=== PATIENT | female | born 1945 | race Caucasian/White ===

== ENCOUNTER 2021-01-31 08:28 | Outpatient (CLI) | payer MEDICARE ==
[2021-01-31] VITALS (12 sets, daily range): BP systolic 89–198; BP diastolic 33–60
[~2021-01-31] VITALS: Ht 156.2 cm; Wt 47.7 kg
[~2021-01-31 08:28] MED LIST: AMLO10TA4 PO; ASPI-482 PO; ATOR10TA PO; BUTA1CAP29 PO; CHOL2000 PO; DIAZ5TAB PO; IODIXANOL 320 MG/ML 100 ML VIAL. ONE; LIDOCAINE 1% Multi-Dose 20 ML VIAL. ONE; TRIA1CAP PO
[2021-01-31] MEDS ORDERED: LISI20TA PO (08:57)
[2021-01-31] MEDS ORDERED: LISI-517 PO (08:57)
[2021-01-31] MEDS ORDERED: CRESTOR5 MG PO (08:59)
[2021-01-31] MEDS ORDERED: CODEINE PO (09:06)
[2021-01-31] MEDS ORDERED: FIORINAL PO (09:06)
[2021-01-31] MEDS ORDERED: lozol PO (09:06)
[2021-01-31 09:07] LABS: HEMATOCRIT 37.4 % (36.0-47.0); HEMOGLOBIN 12.5 g/dL (12.0-15.5); RED BLOOD COUNT 4.21 x10^6/uL (3.50-5.40); RED CELL DISTRIBUTION WIDTH 14.9 % (11.5-14.5); WHITE BLOOD COUNT 5.7 x10^3/uL (4.0-11.0)
[2021-01-31 09:15] LABS: CALCIUM 9.3 mg/dL (8.5-10.1); CREATININE 1.6 mg/dL (0.6-1.0); GFR 31.3; POTASSIUM 4.3 mmol/L (3.5-5.1)
[2021-01-31 09:16] LABS: PROTHROMBIN TIME PATIENT 11.9 SEC (11.7-14.0)
--- NOTE | 2021-01-31 09:29 | PDOC ---
MODERATE SEDATION ASSESSMENT RISKS/ALTERNATIVES Risks/Alternatives Risks and alternatives of this type of sedation and procedure discussed with: RISK/ALTERNATIVES: Patient H & P ON CHART H & P H & P on chart and reviewed for co-morbid conditions and appropriate labs. H&P ON CHART: Yes STATUS PREG STATUS ASSESSED: N/A MEDS/ALLERGIES REVIEWED Meds/Allergies Reviewed Medications and Allergies including time and route of recently administered narcotics and sedatives. MEDS/ALLERGIES REVIEWED: Yes ASA RATING ASA RATING: III AIRWAY ASSESSMENT Airway Assessment Airway patency, oral function limitations, presence of caps, crowns, dentures, partials, and ability to extend neck assessed. AIRWAY ASSESSMENT: Yes MALLAMPATI SCORE MALLAMPATI SCORE: II PRE-SEDATION ASSESSMENT PRE-SEDATION ASSESSMENT: Yes DYLON KIRKPATRICK MD Jan 31, 2021 09:29
[2021-01-31] MEDS ORDERED: MIDAZOLAM HCL/PF 2 MG/2 ML VIAL. ONE ×2 (09:35→10:15)
[2021-01-31] MEDS ORDERED: fentaNYL PF VIAL 100 MCG/2 ML VIAL ONE (09:35)
[2021-01-31] MEDS ORDERED: hydrALAZINE 20 MG/ML VIAL. ONE (10:18)
[2021-01-31] MEDS ORDERED: HEPARIN for IV BOLUS 10,000 UNIT/10 ML VIAL. ONE (10:24)
[2021-01-31] MEDS ORDERED: HEPARIN for IV BOLUS 10,000 UNIT/10 ML VIAL. IV ONE (10:45)
[2021-01-31] MEDS ORDERED: hydrALAZINE 20 MG/ML VIAL. IVP ONE (10:45)
[2021-01-31] MEDS ORDERED: diphenhydrAMINE 50 MG/ML VIAL ONE (10:56)
[2021-01-31] MEDS ORDERED: diphenhydrAMINE 50 MG/ML VIAL IVP ONE (11:00)
[2021-01-31] MEDS ORDERED: CLOPIDOGREL BISULFATE 75 MG TABLET ONE (11:22)
[2021-01-31] MEDS ORDERED: ASPIRIN 325 MG TABLET ONE (11:22)
[2021-01-31] MEDS ORDERED: LIDOCAINE 1% Multi-Dose 20 ML VIAL. INJ ONE (11:30)
[2021-01-31] MEDS ORDERED: MIDAZOLAM HCL/PF 2 MG/2 ML VIAL. IV ONE (11:30)
[2021-01-31] MEDS ORDERED: IODIXANOL 320 MG/ML 100 ML VIAL. IART ONE (11:30)
[2021-01-31] MEDS ORDERED: ACETAMINOPHEN 325 MG TABLET. PO PRN (11:30)
[2021-01-31] MEDS ORDERED: IV 1/2 NORMAL SALINE 1,000 ML IV SCH (11:30)
[2021-01-31] MEDS ORDERED: fentaNYL PF VIAL 100 MCG/2 ML VIAL IV ONE (11:30)
[2021-01-31] MEDS ORDERED: CLOPIDOGREL BISULFATE 75 MG TABLET PO ONE (11:30)
[2021-01-31] MEDS ORDERED: ASPIRIN 325 MG TABLET PO ONE (11:30)
[2021-01-31] MEDS ORDERED: CONTRAST GIVEN. MC PRN (11:45)
[2021-01-31] MEDS ORDERED: CLOP75TA PO (12:57)
--- NOTE | 2021-01-31 13:42 | CARD ---
MR#: [id number] Date of Study: 01/31/2021 Ordering Physician: DYLON TAM, Referring Physician: DYLON TAM Tech: Anette Pollard RT(R) APPROVED REPORT Patient StatusOUT-PATIENT Engine Repairer Service: Anette Pollard RT(R) Procedure(s) performed: 1. Bilateral selective renal angiography 2. Successful REED OR WIND INSTRUMENT REPAIRER/stents placement to bilateral renal arteries FLOURO TIME: 22.8 MINUTES DOSE: 15.49 Gycm2 CONTRAST: 76 CC'S VISIPAQUE MODERATE SEDATION: 90 MINUTES INDICATION FOR PROCEDURE The indication(s) include : Resistant hypertension and renal artery stenosis . CASE TECHNIQUE After explaining the risks, benefits, and alternative options, informed consent was obtained from the patient. IV conscious sedation was used throughout procedure with appropriate monitoring and was per formed in the presence of a registered nurse who was an independent trained observer other than the judy krause performing the procedure. During this case, Fluoroscopy and low osmolar contrast were used f or imaging. Specimen(s) Removed: No Estimated Blood loss: 15 cc's. PROCEDURE NARRATIVE After explaining the risks, benefits and alternative options, informed consent was obtained from dave ent. Patient was brought to the cardiac Food Operations Manager and her right groin was prepped and draped in the us ual fashion. Arterial access was obtained in the right common femoral artery. Initial attempts to adv ance a J-wire across the right common iliac artery were unsuccessful secondary to atherosclerotic lucio que, calcification and aneurysmal dilatation. This was crossed with a 0.035 inch Glidewire and a 6 Fr [facility] 23 cm bright tip sheath was inserted. 6 Faroese JR4 catheter was used to perform selective angiog marshall of bilateral renal arteries. The following findings were noted FINDINGS 1. The right kidney was supplied by one main renal artery and showed 70% proximal segment stenosis. 2. The left kidney was supplied by one main renal artery that showed a calcified 90% stenosis in the proximal segment. 3. Incidental note was made of bilateral lower extremity peripheral artery disease including chronic total occlusion of right SFA. INTERVENTION The left renal artery was engaged with a 6 Faroese JR4 guide under fluoroscopy guidance and the stenos is in the proximal segment was crossed with a 0.014 inch Quest Discovery guidewire. This was predilate d with a 4 x 12 Euphora balloon following which this was treated with a 5 x 15 mm Herculink Elite bal loon expandable stent. Follow-up angiography showed resolution of the stenosis with good distal flow. Subsequently, the right renal artery was engaged with the same JR4 guide catheter, crossed with a Pr owater guidewire and predilated with a 4 x 12 mm Euphora balloon. Subsequently, this was treated with a 4.0 x 12 mm MultiLink vision stent that was inflated at high pressure to achieve 4.3 lumen size. F ollow-up angiography showed resolution of the stenosis with good distal flow. Patient tolerated the p rocedure well. Hemostasis in the right groin was achieved using Mynx closure device. There were no im mediate complications Conclusion 1. Severe bilateral renal artery stenosis 2. Successful REED OR WIND INSTRUMENT REPAIRER/stent placement to bilateral renal arteries 3. Incidental finding of bilateral lower extremity peripheral artery disease including chronic total occlusion of right SFA. Recommendations 1. Aspirin 325 mg daily for 1 month followed by 81 mg daily 2. Plavix 75 mg daily for 4 to 6 weeks 3. Vascular risk factor modification 4. Consider lower extremity arterial duplex scan or angiography if patient is symptomatic Signed by : Dylon Tam, Electronically Approved : 01/31/2021 12:01:06
--- NOTE | 2021-01-31 14:15 | NUR ---
2ml air removed from TR band at 1413. Approximately 1 min later, site began to ooze. RN re-inserted 2ml air, cleaned site, no further bleeding. VS stable. Patient eating w/ L hand. No pain. Will attempt to remove more air from band in 30 min. See assessments, VS. Addendum: 01/31/21 at 1431 by DUSTY GUILLEN RN INCORRECT PATIENT
--- NOTE | 2021-01-31 14:30 | NUR ---
Discharge Note: DANILO ROBERTS Discharge instructions and discharge home medications reviewed with Patient/Family and a copy given. All questions have been answered and understanding verbalized. The following instructions and handouts were given: Moderate Sedation and Groin site care. Discontinued left peripheral IV and band aid applied, right groin dressing remained intact. Patient discharged to home with family members via private vehicle.
[2021-02-01] MEDS ORDERED: ASPIRIN ENTERIC COATED 325 MG TABLET.DR. PO SCH (08:00)
[2021-02-01] MEDS ORDERED: CLOPIDOGREL BISULFATE 75 MG TABLET PO SCH (08:00)
== END 2021-01-31 14:30 | disposition home or self-care (01) ==
LOC: CCL 08:28
PROVIDERS: ATTEND Internal Medicine Cardiovascular Disease
DX: I10 Essential (primary) hypertension (principal); I70.1 Atherosclerosis of renal artery; I73.9 Peripheral vascular disease, unspecified; K21.9 Gastro-esophageal reflux disease without esophagitis; F32.9 Major depressive disorder, single episode, unspecified; F17.210 Nicotine dependence, cigarettes, uncomplicated; Z90.49 Acquired absence of other specified parts of digestive tract; Z90.710 Acquired absence of both cervix and uterus; Z98.890 Other specified postprocedural states; Z20.822 Contact with and (suspected) exposure to COVID-19; Z79.899 Other long term (current) drug therapy; Z79.82 Long term (current) use of aspirin
CPT/HCPCS: 36252; 36415; 37236; 37237; 80048; 85027; 85610; 87426; 99152; 99153; C1725; C1769; C1876; C1887; C1892; J0360; J1200; J1644; J2250; J3010; J3490; Q9967; G0269

== ENCOUNTER → 2021-04-14 | Outpatient (CLI) | payer MEDICARE ==
[2021-01-31 13:48] VITALS: BP 109/43
[~2021-04-14] MED LIST changes: +CLOP75TA PO; +CODEINE PO; +CRESTOR5 MG PO; +FIORINAL PO; -IODIXANOL 320 MG/ML 100 ML VIAL. ONE; -LIDOCAINE 1% Multi-Dose 20 ML VIAL. ONE; +LISI-517 PO; +LISI20TA PO; +lozol PO
--- NOTE | 2021-04-14 15:56 | CARD ---
MR#: [id number] Date of Study: 04/14/2021 Ordering Physician: DYLON KIRKPATRICK, Referring Physician: DYLON KIRKPATRICK Tech: La Burroughs [facility] APPROVED REPORT EXAM: Two-dimensional and M-mode echocardiogram with Doppler and color Doppler. Other Information Quality : Technically LimitedHR: 103bpm Rhythm : Tachycardia INDICATION Dyspnea RISK FACTORS Hypertension 2D DIMENSIONS RVDd2.3 (2.9-3.5cm)Left Atrium(2D)2.9 (1.6-4.0cm) IVSd1.5 (0.7-1.1cm)Aortic Root(2D)2.8 (2.0-3.7cm) LVDd2.5 (3.9-5.9cm)LVOT Diameter1.8 (1.8-2.4cm) PWd1.5 (0.7-1.1cm)LVDs1.4 (2.5-4.0cm) FS (%) 44.9 %SV17.3 ml LVEF(%)78.3 (>50%) Aortic Valve AoV Peak Jake.225.7cm/sAoV VTI45.8cm AO Peak GR.20.4mmHgLVOT Peak Jake.123.2cm/s AO Mean GR.11mmHgAVA (VMAX)1.43cm2 AI P 1/2 Pxtm663cz Mitral Valve MV E Pxnjibcw943.4cm/sMV DECEL KZZY168zq MV A Ikkofjif246.6cm/sE/A Ratio0.7 Pulmonary Valve PV Peak Ziegdeba236.4cm/s Tricuspid Valve TR P. Sfburdrb080ud/sTR Peak Gr.26mmHg LEFT VENTRICLE The left ventricle is normal size. There is moderate concentric left ventricular hypertrophy. The lef t ventricular systolic function is normal. Estmated ejection fraction 65%. There is normal LV segmen waldemar wall motion. Transmitral Doppler flow pattern is Grade I-abnormal relaxation pattern. RIGHT VENTRICLE The right ventricle is normal size. There is normal right ventricular wall thickness. The right ventr icular systolic function is normal. ATRIA The left atrium size is normal. The right atrium size is normal. The interatrial septum is intact wit h no evidence for an atrial septal defect or patent foramen ovale as noted on 2-D or Doppler imaging. AORTIC VALVE The aortic valve is moderately thickened but opens well. Doppler and Color Flow revealed moderate aor tic regurgitation. There is no significant aortic valvular stenosis. MITRAL VALVE The mitral valve is normal in structure and function. There is no evidence of mitral valve prolapse. There is no mitral valve stenosis. Doppler and Color-flow revealed mild mitral regurgitation. TRICUSPID VALVE The tricuspid valve is normal in structure and function. Doppler and Color Flow revealed mild tricusp id regurgitation. Estimated PAP 31 mmHg. There is no tricuspid valve stenosis. PULMONIC VALVE The pulmonary valve is normal in structure and function. Doppler and Color Flow revealed no pulmonic valvular regurgitation. GREAT VESSELS The aortic root is normal in size. The ascending aorta is normal in size. The IVC is normal in size a nd collapses >50% with inspiration. PERICARDIAL EFFUSION There is no evidence of significant pericardial effusion. Critical Notification Critical Value: No <Conclusion> The left ventricular systolic function is normal. Estmated ejection fraction 65%. There is normal LV segmental wall motion. Transmitral Doppler flow pattern is Grade I-abnormal relaxation pattern. Moderate aortic regurgitation. Mild mitral regurgitation. Mild tricuspid regurgitation. Estimated PAP 31 mmHg. There is no evidence of significant pericardial effusion. Signed by : Dylon Kirkpatrick, Electronically Approved : 04/14/2021 15:56:18
--- NOTE | 2021-04-18 12:26 | RAD ---
MR#: [id number] Date of Study: 04/14/2021 Ordering Physician: DYLON KIRKPATRICK, Referring Physician: DYLON KIRKPATRICK, Tech: Brenden Neumann MBA, RDMS, RVT, RDCS, RTR APPROVED REPORT Patient Location: OUT-PATIENT Indications PAD VELOCITY AND DOPPLER WAVEFORM ANALYSIS RIGHT cm/secWaveformSeverity LEFT cm/secWaveform Severity dCFA 262.0MonophasicdCFA 86.0Monophasic Prof Fem Art. 185.0MonophasicProf Fem Art. 93.0Monophasic Fem Art Prox. OccludedFem Art Prox. 18.0Monophasic Fem Art Mid. OccludedFem Art Mid. Occluded Fem Art Dist. OccludedFem Art Dist. Occluded Pop Art(Fossa) 78.0MonophasicPop Art(AK) 40.0Monophasic ENGINEER TECHNICAL STAFF Prox. 47.0MonophasicPTA Prox. 27.0Monophasic ENGINEER TECHNICAL STAFF Dist. 18.0MonophasicPTA Dist. 20.0Monophasic Per Art Mid. Per Art Mid. 17.0Monophasic TR Prox. 34.0MonophasicATA Prox. 19.0Monophasic DPA 29MonophasicDPA 15Monophasic Findings Grayscale images of the bilateral lower extremity arterial vessels demonstrates moderate to severe di ffuse atherosclerosis. The right common femoral arterial velocities are elevated with a monophasic wave pattern suggestive o f greater than 50% stenosis more proximally. The right SFA is occluded. The popliteal artery has re constitution of flow likely via collaterals in a monophasic wave pattern. There is two-vessel runoff below the knee with diminished waveforms in a monophasic wave pattern and the peroneal artery is not well visualized. On the left side the mid to distal SFA is occluded. Velocities are again diminished below the knee c onsistent with more proximal occlusion. Overall waveforms are monophasic. Critical Notification Critical Value: No <Conclusion> 1. Severe bilateral lower extremity arterial disease with bilateral SFA occlusions. Signed by : Bertram Rangel, Electronically Approved : 04/18/2021 12:26:17
== END ==
LOC: ECHO 12:59
PROVIDERS: ATTEND Internal Medicine Cardiovascular Disease
DX: I08.3 Combined rheumatic disorders of mitral, aortic and tricuspid valves (principal); I70.203 Unspecified atherosclerosis of native arteries of extremities, bilateral legs; I10 Essential (primary) hypertension; I73.9 Peripheral vascular disease, unspecified
CPT/HCPCS: 93306; 93925

== ENCOUNTER 2021-06-05 07:10 | Outpatient (CLI) | payer MEDICARE ==
[2021-06-05] VITALS (13 sets, daily range): BP systolic 109–198; BP diastolic 49–85
[~2021-06-05] VITALS: Ht 154.9 cm; Wt 47.7 kg
[~2021-06-05 07:10] MED LIST changes: -LISI-517 PO; +LISI5TAB15 PO
[2021-06-05] MEDS ORDERED: IODIXANOL 320 MG/ML 100 ML VIAL. ONE (07:35)
[2021-06-05 08:06] LABS: HEMATOCRIT 36.7 % (36.0-47.0); HEMOGLOBIN 12.4 g/dL (12.0-15.5); RED BLOOD COUNT 4.15 x10^6/uL (3.50-5.40); RED CELL DISTRIBUTION WIDTH 15.8 % (11.5-14.5); WHITE BLOOD COUNT 8.1 x10^3/uL (4.0-11.0)
[2021-06-05] MEDS ORDERED: MIDAZOLAM HCL/PF 5 MG/5 ML VIAL. ONE (08:12)
[2021-06-05] MEDS ORDERED: fentaNYL PF VIAL 100 MCG/2 ML VIAL ONE (08:12)
[2021-06-05] MEDS ORDERED: LISI20TA PO (08:16)
[2021-06-05] MEDS ORDERED: AMLO10TA4 PO (08:16)
[2021-06-05 08:20] LABS: PROTHROMBIN TIME PATIENT 12.3 SEC (11.7-14.0)
[2021-06-05 08:22] LABS: CALCIUM 9.2 mg/dL (8.5-10.1); CREATININE 1.6 mg/dL (0.6-1.0); GFR 31.3
[2021-06-05] MEDS ORDERED: VERAPAMIL 5 MG/2 ML VIAL. ONE ×2 (08:22→09:00)
[2021-06-05] MEDS ORDERED: HEPARIN for IV BOLUS 10,000 UNIT/10 ML VIAL. ONE (08:22)
[2021-06-05] MEDS ORDERED: NITROGLYCERIN 200 MCG/2 ML SYRINGE FOR CATH/VASC LAB. ONE (08:23)
[2021-06-05] MEDS ORDERED: NITROGLYCERIN 200 MCG/2 ML SYRINGE FOR CATH/VASC LAB. IART ONE (08:45)
[2021-06-05] MEDS ORDERED: fentaNYL PF VIAL 100 MCG/2 ML VIAL IV ONE (08:45)
[2021-06-05] MEDS ORDERED: HEPARIN for IV BOLUS 10,000 UNIT/10 ML VIAL. IART ONE (08:45)
[2021-06-05] MEDS ORDERED: LIDOCAINE 1% PF 2 ML VIAL. INJ ONE (08:45)
[2021-06-05] MEDS ORDERED: VERAPAMIL 5 MG/2 ML VIAL. IART ONE (08:45)
[2021-06-05] MEDS ORDERED: MIDAZOLAM HCL/PF 5 MG/5 ML VIAL. IV ONE (08:45)
[2021-06-05] MEDS ORDERED: IODIXANOL 320 MG/ML 100 ML VIAL. IART ONE (08:45)
[2021-06-05] MEDS ORDERED: LIDOCAINE 1% PF 2 ML VIAL. ONE (08:51)
[2021-06-05] MEDS ORDERED: diphenhydrAMINE 50 MG/ML VIAL ONE (08:58)
[2021-06-05] MEDS ORDERED: diphenhydrAMINE 50 MG/ML VIAL IVP ONE (09:00)
[2021-06-05] MEDS ORDERED: LIDOCAINE 1% Multi-Dose 20 ML VIAL. ONE (09:04)
[2021-06-05] MEDS ORDERED: LIDOCAINE 1% Multi-Dose 20 ML VIAL. INJ ONE (09:15)
--- NOTE | 2021-06-05 09:56 | PDOC ---
MODERATE SEDATION ASSESSMENT RISKS/ALTERNATIVES Risks/Alternatives Risks and alternatives of this type of sedation and procedure discussed with: RISK/ALTERNATIVES: Patient H & P ON CHART H & P H & P on chart and reviewed for co-morbid conditions and appropriate labs. H&P ON CHART: Yes STATUS PREG STATUS ASSESSED: N/A MEDS/ALLERGIES REVIEWED Meds/Allergies Reviewed Medications and Allergies including time and route of recently administered narcotics and sedatives. MEDS/ALLERGIES REVIEWED: Yes ASA RATING ASA RATING: III AIRWAY ASSESSMENT Airway Assessment Airway patency, oral function limitations, presence of caps, crowns, dentures, partials, and ability to extend neck assessed. AIRWAY ASSESSMENT: Yes MALLAMPATI SCORE MALLAMPATI SCORE: II PRE-SEDATION ASSESSMENT PRE-SEDATION ASSESSMENT: Yes DYLON KIRKPATRICK MD Jun 05, 2021 09:55
[2021-06-05] MEDS ORDERED: NITROGLYCERIN SUBLINGUAL 0.4 MG BOTTLE OF 25. SL PRN (10:00)
[2021-06-05] MEDS ORDERED: IV 1/2 NORMAL SALINE 1,000 ML IV SCH (10:00)
--- NOTE | 2021-06-05 10:17 | CARD ---
MR#: [id number] Date of Study: 06/05/2021 Ordering Physician: DYLON KIRKPATRICK, Referring Physician: DYLON KIRKPATRICK, Tech: Dmitriy Enciso RT(R)() APPROVED REPORT Patient StatusOUT-PATIENT Decontaminator: RT Lara(R)() Procedure(s) performed: Aortogram with bilateral lower extremity runoff FL TIME: 7.5 MINS DOSE: 37 GYCM2 CONTRAST: 68 ML MODERATE SEDATION: 68 MINS INDICATION FOR PROCEDURE The indication(s) include : Peripheral artery disease with claudication and abnormal arterial duplex scan. CASE TECHNIQUE After explaining the risks, benefits, and alternative options, informed consent was obtained from the patient. IV conscious sedation was used throughout procedure with appropriate monitoring and was per formed in the presence of a registered nurse who was an independent trained observer other than the judy krause performing the procedure. During this case, Fluoroscopy and low osmolar contrast were used f or imaging. Specimen(s) Removed: No Estimated Blood loss: 15 cc's. PROCEDURE NARRATIVE After explaining the risk, benefits and alternative options, informed consent was obtained from donnie francis. Patient was brought to the cardiac Senior Materials Analyst and her right wrist and right groin were prepped and draped in the usual fashion. Attempts at obtaining arterial access in the right radial artery were unsuccessful secondary to small caliber nature of the vessel. 10 cc of 2% lidocaine was then infiltr ated into the skin and subcutaneous tissues of the right groin for local anesthesia. Arterial access was obtained in the right common femoral artery and 5 Sri [place]ankan sheath was inserted. 5 [place]ankan pigtail catheter was used to perform aorto iliac angiography. The aortic damon was crossed over with the he lp of a 5 [place]an crossover catheter. This was then exchanged to a 4 [place]an angled glide catheter and with the tip position in the left external iliac artery, selective left lower extremity angiography was performed. The tip of the angled glide catheter was then positioned in the right common iliac ar adalberto and selective right lower extremity angiography was performed. Patient tolerated the procedure well. Hemostasis was achieved using manual compression. There were no immediate complications. FINDINGS 1. Infrarenal abdominal aortic aneurysm noted. Just distal to the aneurysm, there was a 60 to 70% s tenosis involving the distal descending aorta. 2. The right common iliac artery did not show any significant stenosis. The left common iliac arter y showed 60% stenosis in the proximal segment. 3. The right external iliac artery showed 80% stenosis in the proximal segment. The left external i liac artery showed 90% stenosis in the proximal segment. 4. The left common femoral artery showed 80% calcified stenosis. The right common femoral artery ap pears to be occluded, probably secondary to combination of the presence of the sheath and significant underlying lesion. The right profunda femoris artery reconstitutes via collaterals. 5. The right and left superficial femoral arteries showed long calcified and chronic total occlusion s involving the proximal and mid segments with distal reconstitution from collaterals via profunda fe zenobia. 6. The popliteal arteries bilaterally did not show any significant stenosis. There is good three ve ssel runoff below the knee in the proximal to mid segments. The distal segments were not well visual ized. Conclusion Significant bilateral lower extremity peripheral artery disease as noted above including chronic and long total occlusions involving bilateral superficial femoral arteries, significant bilateral externa l iliac and common femoral arteries stenoses. Also noted was infrarenal abdominal aortic aneurysm an d 60 to 70% stenosis involving the distal descending aorta. Recommendations Vascular surgery team consultation for possible surgical revascularization. Vascular risk factor modification including complete smoking cessation Signed by : Dylon Kirkpatrick, Electronically Approved : 06/05/2021 10:17:15
--- NOTE | 2021-06-05 13:00 | NUR ---
Discharge Note: DANILO ROBERTS Discharge instructions and discharge home medications reviewed with Patient and a copy given. All questions have been answered and understanding verbalized. Number for Vascular Surgery provided to family member. Dressing to R groin site remains clean and dry The following instructions and handouts were given: PAD, sedation, groin site care Discontinued lines and drains: Peripheral IV intact. Patient discharged to Home or Self Care with Family Member via Wheelchair CORAL GR Addendum: 06/05/21 at 1324 by YOLY OLIVER RN Amended: Links added.
== END 2021-06-05 13:00 | disposition home or self-care (01) ==
LOC: CCL 07:10
PROVIDERS: ATTEND Internal Medicine Cardiovascular Disease
DX: I73.9 Peripheral vascular disease, unspecified (principal); I10 Essential (primary) hypertension; K21.9 Gastro-esophageal reflux disease without esophagitis; F32.9 Major depressive disorder, single episode, unspecified; F17.210 Nicotine dependence, cigarettes, uncomplicated; Z90.49 Acquired absence of other specified parts of digestive tract; Z98.890 Other specified postprocedural states; Z79.899 Other long term (current) drug therapy; Z88.8 Allergy status to other drugs, medicaments and biological substances
CPT/HCPCS: 36246; 36415; 75625; 75716; 80048; 85027; 85610; 87426; 99152; 99153; C1769; C1894; J1200; J1644; J2250; J3010; J3490; Q9967